=== PATIENT | male | born 1995 | race African-American/Black ===

== ENCOUNTER 2019-06-21 02:03 | Emergency (ER) | payer OTHER ==
[2019-06-21] MEDS ORDERED: NAPROXEN 250 MG TABLET PO ONE (02:57)
--- NOTE | 2019-06-21 03:06 | ER Document Report ---
ED General - General Chief Complaint: Shoulder Injury Stated Complaint: SHOULDER AND KNEE PAIN Time Seen by Provider: 06/21/19 02:57 Primary Care Provider: RACHNA,RAMO [Primary Care Provider] - Follow up as needed TRAVEL OUTSIDE OF THE [place] IN LAST 30 DAYS: No - HPI Notes: 23-year-old male presents with right shoulder injury. Patient was playing football with some friends when he states he came up and hit shoulders. He complains of sudden onset severe right anterolateral shoulder pain. No numbness or tingling, no head injury. Moderate intensity, sudden onset. Nonradiating. No other modifying factors, no other associated symptoms, no other provocative or palliative factors. - Related Data Allergies/Adverse Reactions: No Known Allergies Allergy (Unverified 06/21/19 02:09) Past Medical History - Social History Smoking Status: Never Smoker Family History: Reviewed & Not Pertinent - Medical History Medical History: Negative - Immunizations Hx Diphtheria, Pertussis, Tetanus Vaccination: Yes Review of Systems - Review of Systems Notes: Review of systems as in history of present illness, otherwise no significant headache, chest pain, abdominal pain. Physical Exam - Vital signs Vitals: Temp Pulse Resp BP Pulse Ox 98.2 F 88 12 130/68 H 95 06/21/19 02:11 06/21/19 02:11 06/21/19 02:11 06/21/19 02:11 06/21/19 02:11 - Notes Notes: General: Well-developed, well-nourished HEENT: Normocephalic. No external trauma noted. No espinoza sign, no hemotympanum. Mucosa is moist. No intraoral trauma. Neck: Midline trachea, no JVD. No midline cervical spine tenderness. No step-off or deformity. Chest: Normal excursion, no accessory muscle use. No gross trauma. Abdomen: Soft, nondistended. Nontender. No bruising. Pelvis: Stable. Vascular: Strong and symmetric upper and lower extremity pulses. Well-perfused extremities. Motor: Normal tone and power. Neurologic: Alert, nonfocal. Sensation symmetric and intact. Skin: No significant lacerations or purpura. Extremities: No cyanosis. Right anterolateral point tenderness noted no crepitus. Range of motion limited in all cardinal directions secondary to pain. Normal neurovascular exam strong radial pulses. Normal deltoid sensation Course - Vital Signs Vital signs: Temp Pulse Resp BP Pulse Ox 98.2 F 88 12 130/68 H 95 06/21/19 02:11 06/21/19 02:11 06/21/19 02:11 06/21/19 02:11 06/21/19 02:11 - Transfer of Care Notes: 06/21/19 03:05 Well-appearing male with right shoulder injury. Consider fracture versus sprain versus dislocation. Plan proceed with plain films, oral naproxen for pain, reevaluate. 06/21/19 03:38 Plain films show no evidence of fracture. Discharged home with a prescription for diclofenac, close outpatient follow-up. Patient understands that should he have persistent pain, he will need to follow-up with his primary care physician for reevaluation and referral Discharge - Discharge Clinical Impression: Shoulder sprain Qualifiers: Encounter type: initial encounter Shoulder sprain type: unspecified sprain Laterality: right Qualified Code(s): S43.401A - Unspecified sprain of right shoulder joint, initial encounter Condition: Good Disposition: HOME, SELF-CARE Instructions: Shoulder Injury ([facility]) Prescriptions: Diclofenac Sodium 75 mg PO Q12 7 Days #14 tablet. [facility] [[facility]] - Follow up as needed
--- NOTE | 2019-06-21 04:02 | RADIOLOGY REPORT (SQ) ---
EXAM DESCRIPTION: XR SHOULDER 2 OR MORE VIEWS COMPLETED DATE/TME: 06/21/2019 03:27 CLINICAL HISTORY: 23 years, Male, trauma COMPARISON: None. FINDINGS: No fracture or dislocation. Soft tissues are unremarkable. IMPRESSION: No acute abnormality.
[2019-06-21 04:03] VITALS: BP 124/65
== END 2019-06-21 04:03 | disposition home or self-care (01) ==
LOC: ER 02:03
DX: S43.401A Unspecified sprain of right shoulder joint, initial encounter (principal); M25.511 Pain in right shoulder; W50.0XXA Accidental hit or strike by another person, initial encounter; Y93.61 Activity, american tackle football
CPT/HCPCS: 99283

== ENCOUNTER 2020-05-15 13:44 | Emergency (ER) | payer OTHER ==
[2020-05-15 13:52] VITALS: BP 134/84
--- NOTE | 2020-05-15 14:54 | ER Document Report ---
ED Burn/Smoke/Toxic Fumes - General Chief Complaint: Burn Stated Complaint: BURN ON FOOT Time Seen by Provider: 05/15/20 14:41 Primary Care Provider: RACHNA,RAMO [Primary Care Provider] - Follow up as needed Mode of Arrival: Ambulatory Information source: Patient Notes: 24-year-old male presented to ED for burn to the top of the right foot. 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 He now has the front of his shoes burned into his foot. He states he did this about 3 to 4 days ago. He states the burn was healing nicely and then he put Neosporin on it and now it is puffy and tender. I have instructed him please do not use any more Neosporin. I have instructed him for cleaning and dressing the wound. TRAVEL OUTSIDE OF THE [place] IN LAST 30 DAYS: No - HPI Patient complains to provider of: Burn Onset: Other - 4 days ago Where: Home, Indoors Quality of pain: Burning Severity: Moderate Pain Level: 2 Associated Symptoms: Other - Burn to the top of the left foot Other injuries: Other - Left foot - Related Data Allergies/Adverse Reactions: No Known Allergies Allergy (Verified 05/15/20 14:40) Past Medical History - General Information source: Patient - Social History Smoking Status: Never Smoker Frequency of alcohol use: Rare Drug Abuse: None Family History: Reviewed & Not Pertinent Patient has homicidal ideation: No - Past Medical History Cardiac Medical History: Reports: None Pulmonary Medical History: Reports: None EENT Medical History: Reports: None Neurological Medical History: Reports: None Endocrine Medical History: Reports: None Renal/ Medical History: Reports: None Malignancy Medical History: Reports None GI Medical History: Reports: None Musculoskeletal Medical History: Reports None Skin Medical History: Reports None Psychiatric Medical History: Reports: None Traumatic Medical History: Reports: None Infectious Medical History: Reports: None Surgical Hx: Negative Past Surgical History: Reports: None - Immunizations Immunizations up to date: Yes Hx Diphtheria, Pertussis, Tetanus Vaccination: Yes Review of Systems - Review of Systems Constitutional: No symptoms reported EENT: No symptoms reported Cardiovascular: No symptoms reported Respiratory: No symptoms reported Gastrointestinal: No symptoms reported Genitourinary: No symptoms reported Male Genitourinary: No symptoms reported Musculoskeletal: No symptoms reported Skin: Other - Second-degree burn to the top of the right foot with reaction to Neosporin Hematologic/Lymphatic: No symptoms reported Neurological/Psychological: No symptoms reported -: Yes All other systems reviewed and negative Physical Exam - Vital signs Vitals: Temp Pulse Resp BP Pulse Ox 98.5 F 97 18 134/84 H 99 05/15/20 13:51 05/15/20 13:51 05/15/20 13:51 05/15/20 13:51 05/15/20 13:51 Interpretation: Normal - General General appearance: Appears well, Alert - HEENT Head: Normocephalic, Atraumatic Eyes: Normal Pupils: PERRL - Respiratory Respiratory status: No respiratory distress Chest status: Nontender Breath sounds: Normal Chest palpation: Normal - Cardiovascular Rhythm: Regular Heart sounds: Normal auscultation Murmur: No - Abdominal Inspection: Normal Distension: No distension Bowel sounds: Normal Tenderness: Nontender Organomegaly: No organomegaly - Back Back: Normal, Nontender - Extremities General upper extremity: Normal inspection, Nontender, Normal color, Normal ROM, Normal temperature General lower extremity: Normal inspection, Nontender, Normal color, Normal ROM, Normal temperature, Normal weight bearing. No: Fannie's sign Foot: Tender - Burn was reaction to Neosporin or bandage - Neurological Neuro grossly intact: Yes Cognition: Normal Orientation: AAOx4 [place] Coma Scale Eye Opening: Spontaneous [place] Coma Scale Verbal: Oriented [place] Coma Scale Motor: Obeys Commands [place] Coma Scale Total: 15 Speech: Normal Motor strength normal: LUE, RUE, LLE, RLE Sensory: Normal - Psychological Associated symptoms: Normal affect, Normal mood - Skin Skin Temperature: Warm Skin Moisture: Dry Skin Color: Normal Location of irregularity: Extremities - Burn to the top of the right foot Character of irregularity: Erythematous Irregularity with: Tenderness, Inflammation Course - Vital Signs Vital signs: Temp Pulse Resp BP Pulse Ox 98.5 F 97 18 134/84 H 99 05/15/20 13:51 05/15/20 13:51 05/15/20 13:51 05/15/20 13:51 05/15/20 13:51 Discharge - Discharge Clinical Impression: Burn to the top of the right foot Condition: Stable Disposition: HOME, SELF-CARE Additional Instructions: Mosher The seriousness of a burn is not always obvious at first. Delayed tissue damage and secondary infection may occur despite proper treatment. Proper care is very important. A burn that is third-degree may need skin grafting. Most mosher, however, are simply protected with dressings until healed. Keep the burn clean. If the dressing gets wet, remove it and blot the wound dry, then apply a fresh dressing. Dressings should be changed at least once daily. Soaks to remove crusting are usually started in about two days. Mosher in certain areas require stretching to prevent disabling tightness. Your doctor will advise you about this. For pain control, you may frequently apply a hand towel that has been dipped in water with ice cubes. Do not apply ice directly to the burned areas. If any signs of infection occur (swelling, redness, increasing tenderness, red streaks, tender lumps in the armpit or groin above the burn, or fever), contact the doctor immediately. Soap Cleansing please clean and dress this area at least 2-3 times a day for the next 4 to 5 days Gently wash the wound daily using a mild soap (like Ivory, Phisoderm, Neutrogena). Use warm water, rubbing gently until all debris, ooze, and crusting have been washed from the wound. Allow to dry briefly (about 10 minutes) after cleaning. Repeat this cleansing at least three times a day for the first two days and then once or twice a day. Antibiotic Ointment Protection Your wounds are such that dressing them is not practical or optional. After cleansing, you should apply a thin coating of antibiotic ointment (Bacitracin, not Neosporin) to the wounds at least three times daily. This lessens infection risk, and may decrease the amount of scarring. Use a q-tip or dull butter knife, not your finger, to apply this ointment. Any debris or ooze which builds up in the ointment should be gently rubbed off with a sterile gauze pad. Harder crusting may need to be gently scrubbed off with a clean wash cloth with soap and warm water, perhaps applying a warm, wet wash cloth to the wound for ten minutes first. Development of redness, severe itching, or blistering may mean allergy to the ointment. See the doctor. Acetaminophen Acetaminophen may be taken for pain relief or fever control. It's much safer than aspirin, offering a wider range of "safe" dosages. It is safe during . Some brand names are Tylenol, Panadol, Datril, Anacin 3, Tempra, and Liquiprin. Acetaminophen can be repeated every four hours. The following are maximum recommended dosages: WEIGHT Dose Drops Elixir Chewable(80mg) (LBS.) drprs=droppers tsp=teaspoon 6 40 mg .4 ml (1/2) 6-11 80 mg .8 ml (full) 1/2 tsp 1 tab 12-16 120 mg 1 1/2 drprs 3/4 tsp 1 1/2 tabs 17-23 160 mg 2 drprs 1 tsp 2 tabs 24-30 240 mg 3 drprs 1 1/2 tsp 3 tabs 30-35 320 mg 2 tsp 4 tabs 36-41 360 mg 2 1/4 tsp 4 1/2 tabs 42-47 400 mg 2 1/2 tsp 5 tabs 48-53 480 mg 3 tsp 6 tabs 54-59 520 mg 3 1/4 tsp 6 1/2 tabs 60-64 560 mg 3 1/2 tsp 7 tabs 65-70 600 mg 3 3/4 tsp 7 1/2 tabs 71-76 640 mg 4 tsp 8 tabs 77-82 720 mg 4 1/2 tsp 9 tabs 83-88 800 mg 5 tsp 10 tabs >89 pounds or adults 650 mg to 900 mg Acetaminophen can be repeated every four hours. Maximum daily dose not to exceed 4000 mg. These maximum recommended dosages are slightly higher than the dosages written on the product container, but these dosages are very safe and well below the toxic dosage for acetaminophen. Ibuprofen Ibuprofen is an excellent, safe drug for pain control. In addition, it has potent antiinflammatory effects which are beneficial, especially in the treatment of injuries, arthritis, or tendonitis. It's best to take ibuprofen with food. Persons with ulcer disease or allergy to aspirin should notify their physician of this before taking ibuprofen. Take the medication exactly as prescribed. Don't take additional doses unless instructed to do so by your doctor. If you develop wheezing, shortness of breath, hives, faintness, stomach pain, vomiting, or dark black stools, return for re-evaluation at once. FOLLOW-UP CARE: If you have been referred to a physician for follow-up care, call the physicians office for an appointment as you were instructed or within the next two days. If you experience worsening or a significant change in your symptoms, notify the physician immediately or return to the Emergency Department at any time for re-evaluation. Forms: Elevated Blood Pressure Referrals: [facility] [Primary [facility]] - Follow up as needed
== END 2020-05-15 14:48 | disposition home or self-care (01) ==
LOC: ER 13:44
DX: T25.221A Burn of second degree of right foot, initial encounter (principal); X12.XXXA Contact with other hot fluids, initial encounter; Y92.009 Unspecified place in unspecified non-institutional (private) residence as the place of occurrence of the external cause
CPT/HCPCS: 99283